=== PATIENT | female | born 1945 | race American Indian/Alaskan Native ===

== ENCOUNTER 2018-02-19 13:23 | Emergency (ER) | payer OTHER ==
[~2018-02-19] VITALS: Ht 152.4 cm; Wt 72.6 kg
[2018-02-19] MEDS ORDERED: SIMVASTATIN5 MG (13:34)
[2018-02-19] MEDS ORDERED: INTESTINEX680 M1 (13:35)
[2018-02-19] MEDS ORDERED: GAVISCON 80-141 EACH (13:35)
[2018-02-19] MEDS ORDERED: TOPROL XL25 M1 (13:35)
[2018-02-19] MEDS ORDERED: DULERA 100 MCG/13 GM (13:36)
[2018-02-19] MEDS ORDERED: ALBUTEROL0.63 MG/3 (13:36)
[2018-02-19] MEDS ORDERED: FLONASE16 GM (13:36)
== END 2018-02-19 20:28 | disposition home or self-care (01) ==
LOC: ER 13:23
DX: K58.1 Irritable bowel syndrome with constipation (principal); K57.30 Diverticulosis of large intestine without perforation or abscess without bleeding; K40.90 Unilateral inguinal hernia, without obstruction or gangrene, not specified as recurrent; N83.291 Other ovarian cyst, right side